=== PATIENT | female | born 1980 | race Caucasian/White ===

== ENCOUNTER 2018-02-03 23:03 | Emergency (ER) | payer MEDICAID, OTHER ==
[~2018-02-03] VITALS: Ht 172.7 cm; Wt 104.3 kg
[~2018-02-03 23:03] MED LIST: FLUT9.9S NS; GUAI120L35 PO
[2018-02-03 23:05] VITALS: BP 127/68
--- NOTE | 2018-02-03 23:09 | ED.ADGEN ---
Past History Past Medical History: No Pertinent History, Other Past Surgical History: Cholecystectomy, Hysterectomy Alcohol Use: None Drug Use: None Adult General Chief Complaint Chief Complaint ".. My stomach hurts...I ve been vomiting like.. when I have ileus... I ve had a lot of abd. surgery's.. and by pass for wt. loss..." HPI HPI Patient is a 37 year old female who presents with nausea and vomiting. Did eat dinner tonight. No one else got sick eating same food. .. Pt. has generalized abd. pain. No hx. of ill contacts or travel. No hx of immunosuppression. Pt. vomiting so hard she notice specks of bright red blood. Review of Systems Review of Systems Constitutional: Denies fever or chills [] Eyes: Denies change in visual acuity, redness, or eye pain [] HENT: Denies nasal congestion or sore throat [] Respiratory: Denies cough or shortness of breath [] Cardiovascular: No additional information not addressed in HPI [] GI: Complaints of generalize abdominal pain, nausea, vomiting,. Denies bloody stools or diarrhea [] : Denies dysuria or hematuria [] Musculoskeletal: Denies back pain or joint pain [] Integument: Denies rash or skin lesions [] Neurologic: Denies headache, focal weakness or sensory changes [] Endocrine: Denies polyuria or polydipsia [] All other systems were reviewed and found to be within normal limits, except as documented in this note. Family History Family History Non-contributory Current Medications Current Medications Current Medications Medications (Trade) Dose Ordered Sig/Jose Start Time Stop Time Status Last Admin Dose Admin Famotidine (Pepcid Vial) 20 mg 1X ONCE 02/03/18 23:30 02/03/18 23:31 DC 02/03/18 23:30 20 MG Info (Do NOT chart on this entry -- for MONITORING) 1 each PRN DAILY PRN 02/04/18 01:15 02/04/18 04:37 DC Iohexol (Omnipaque 240 Mg/ml) 50 ml 1X ONCE 02/04/18 01:15 02/04/18 01:16 DC 02/04/18 02:24 50 ML Iohexol (Omnipaque 300 Mg/ml) 75 ml 1X ONCE 02/04/18 01:15 02/04/18 01:16 DC 02/04/18 02:23 75 ML Lactated Ringer's 1,000 ml @ 1,000 mls/hr Q1H 02/03/18 23:30 02/04/18 00:29 DC 02/03/18 23:30 1,000 MLS/HR Ondansetron HCl (Zofran Odt) 4 mg STK-MED ONCE 02/03/18 23:15 02/03/18 23:16 DC Ondansetron HCl (Zofran) 8 mg 1X ONCE 02/03/18 23:30 02/03/18 23:31 DC 02/03/18 23:30 8 MG Trimethoprim/ Sulfamethoxazole (Bactrim Ds) 1 tab 1X ONCE 02/04/18 03:30 02/04/18 04:35 DC 02/04/18 04:06 1 TAB See Nursing for home meds. Allergies Allergies Allergies Coded Allergies Type Severity Reaction Last Updated Verified Penicillins Allergy Intermediate Rash 09/28/16 Yes Physical Exam Physical Exam Constitutional: moderately acute distress, non-toxic appearance. [] HENT: Normocephalic, atraumatic, bilateral external ears normal, oropharynx moist, no oral exudates, nose normal. [] Eyes: PERRLA, EOMI, conjunctiva normal, no discharge. [] Neck: Normal range of motion, no tenderness, supple, no stridor. [] Cardiovascular: Tachycardia Heart rate regular rhythm, no murmur [] Lungs & Thorax: Bilateral breath sounds equal at apex on auscultation [] Abdomen: Bowel sounds decreases, soft, generalized tenderness, no masses, no pulsatile masses. [] Multiple surgery scars. Skin: Warm, dry, no erythema, no rash. [] Back: No tenderness, no CVA tenderness. [] Extremities: No tenderness, no cyanosis, no clubbing, ROM intact, ankle edema. [ ] Neurologic: Alert and oriented X 3, normal motor function, normal sensory function, no focal deficits noted. [] Psychologic: Affect anxious, judgement normal, mood normal. [] Current Patient Data Lab Results Laboratory Tests Test 02/03/18 23:50 02/03/18 23:59 White Blood Count 10.5 x10^3/uL (4.0-11.0) Red Blood Count 4.41 x10^6/uL (3.50-5.40) Hemoglobin 12.9 g/dL (12.0-15.5) Hematocrit 38.2 % (36.0-47.0) Mean Corpuscular Volume 87 fL (79-100) Mean Corpuscular Hemoglobin 29 pg (25-35) Mean Corpuscular Hemoglobin Concent 34 g/dL (31-37) Red Cell Distribution Width 13.5 % (11.5-14.5) Platelet Count 353 x10^3/uL (140-400) Neutrophils (%) (Auto) 68 % (31-73) Lymphocytes (%) (Auto) 23 % (24-48) L Monocytes (%) (Auto) 6 % (0-9) Eosinophils (%) (Auto) 3 % (0-3) Basophils (%) (Auto) 0 % (0-3) Neutrophils # (Auto) 7.1 x10^3uL (1.8-7.7) Lymphocytes # (Auto) 2.4 x10^3/uL (1.0-4.8) Monocytes # (Auto) 0.7 x10^3/uL (0.0-1.1) Eosinophils # (Auto) 0.3 x10^3/uL (0.0-0.7) Basophils # (Auto) 0.0 x10^3/uL (0.0-0.2) Prothrombin Time 11.4 SEC (9.4-11.4) Prothrombin Time INR 1.1 (0.9-1.1) PTT 26 SEC (23-33) Sodium Level 142 mmol/L (136-145) Potassium Level 3.8 mmol/L (3.5-5.1) Chloride Level 105 mmol/L (98-107) Carbon Dioxide Level 27 mmol/L (21-32) Anion Gap 10 (6-14) Blood Urea Nitrogen 14 mg/dL (7-20) Creatinine 0.9 mg/dL (0.6-1.0) Estimated GFR (Cockcroft-Gault) 70.8 Glucose Level 110 mg/dL (70-99) H Calcium Level 9.2 mg/dL (8.5-10.1) Total Bilirubin 0.4 mg/dL (0.2-1.0) Direct Bilirubin 0.1 mg/dL (0.0-0.2) Aspartate Amino Transferase (AST) 18 U/L (15-37) Alanine Aminotransferase (ALT) 26 U/L (14-59) Alkaline Phosphatase 87 U/L (46-116) Total Protein 7.7 g/dL (6.4-8.2) Albumin 3.9 g/dL (3.4-5.0) Amylase Level 55 U/L (25-115) Lipase 165 U/L (73-393) Urine Collection Type Unknown Urine Color Straw Urine Clarity Hazy Urine pH 7.0 Urine Specific [place] 1.015 Urine Protein Neg (NEG-TRACE) Urine Glucose (UA) Neg mg/dL (NEG) Urine Ketones (Stick) Neg mg/dL (NEG) Urine Blood Trace (NEG) Urine Nitrite Pos (NEG) Urine Bilirubin Neg (NEG) Urine Urobilinogen Dipstick 0.2 mg/dL (0.2 mg/dL) Urine Leukocyte Esterase Small (NEG) Urine RBC 1-2 /HPF (0-2) Urine WBC 11-20 /HPF (0-4) Urine Squamous Epithelial Cells Few /LPF Urine Transitional Epithelial Cells Few /LPF Urine Renal Epithelial Cells Few /LPF Urine Bacteria Many /HPF (0-FEW) Urine Opiates Screen Neg (NEG) Urine Methadone Screen Neg (NEG) Urine Barbiturates Neg (NEG) Urine Phencyclidine Screen Neg (NEG) Urine Amphetamine/Methamphetamine Neg (NEG) Urine Benzodiazepines Screen Neg (NEG) Urine Cocaine Screen Neg (NEG) Urine Cannabinoids Screen Neg (NEG) Urine Ethyl Alcohol Neg (NEG) EKG EKG [] Radiology/Procedures Radiology/Procedures My interpretation of abd. film shows no free air under diaphragm. Old surgery clips. Findings of bariatric surgery. Non-specific bowel gas pattern. CT of abd. shows no obvious surgical pathology. Prior surgery. No obvious hydronephrosis. Course & Med Decision Making Course & Med Decision Making Pertinent Labs and Imaging studies reviewed. (See chart for details) Clear fluid diet x 48 hrs. No solids or milk products. Zofran for nausea and vomiting up 4 x day. Bactrim DS twice a day. Vitamin C drinks. Follow up cultures and labs with primary. Return if any concerns. [] Final Impression Final Impression 1. Abdomen pain[] 2. Nausea and vomiting 3. UTI Problems: Dragon Disclaimer Dragon Disclaimer This electronic medical record was generated, in whole or in part, using a voice recognition dictation system. JIHAN GABRIEL MD Feb 03, 2018 23:09
[2018-02-03] MEDS ORDERED: ONDANSETRON ODT 4 MG TAB.RAPDIS ONE (23:15)
[2018-02-03] MEDS ORDERED: ONDANSETRON PF 4 MG/2 ML VIAL. IV ONE (23:30)
[2018-02-03] MEDS ORDERED: IV RINGERS SOLUTION,LACTATED 1,000 ML IV SCH (23:30)
[2018-02-03] MEDS ORDERED: FAMOTIDINE 20 MG/2 ML VIAL IVP ONE (23:30)
[2018-02-04 00:05] LABS: BASO % 0 % (0-3); EOS # 0.3 x10^3/uL (0.0-0.7); EOS % 3 % (0-3); HEMATOCRIT 38.2 % (36.0-47.0); HEMOGLOBIN 12.9 g/dL (12.0-15.5); LYMPH # 2.4 x10^3/uL (1.0-4.8); LYMPH % 23 % (24-48); MEAN CORPUSCULAR HEMOGLOBIN 29 pg (25-35); MEAN CORPUSCULAR HGB CONC 34 g/dL (31-37); MEAN CORPUSCULAR VOLUME 87 fL (79-100); MONO # 0.7 x10^3/uL (0.0-1.1); MONO % 6 % (0-9); NEUT # 7.1 x10^3uL (1.8-7.7); NEUT % 68 % (31-73); PLATELET COUNT 353 x10^3/uL (140-400); RED BLOOD COUNT 4.41 x10^6/uL (3.50-5.40); RED CELL DISTRIBUTION WIDTH 13.5 % (11.5-14.5); WHITE BLOOD COUNT 10.5 x10^3/uL (4.0-11.0)
[2018-02-04 00:45] LABS: ALBUMIN 3.9 g/dL (3.4-5.0); CALCIUM 9.2 mg/dL (8.5-10.1); CREATININE 0.9 mg/dL (0.6-1.0); DIRECT BILIRUBIN 0.1 mg/dL (0.0-0.2); GFR 70.8; POTASSIUM 3.8 mmol/L (3.5-5.1); TOTAL BILIRUBIN 0.4 mg/dL (0.2-1.0); TOTAL PROTEIN 7.7 g/dL (6.4-8.2)
[2018-02-04] MEDS ORDERED: IOHEXOL 240 MG/ML 50ML VIAL. PO ONE (01:15)
[2018-02-04] MEDS ORDERED: IOHEXOL 300 MG/ML 75 ML VIAL. IV ONE (01:15)
[2018-02-04] MEDS ORDERED: CONTRAST GIVEN MC PRN (01:15)
[2018-02-04 01:40] LABS: BACTERIA,URINE MANY /HPF (0-FEW); BILIRUBIN,URINE NEG (NEG); CLARITY,URINE HAZY; COLOR,URINE STRAW; GLUCOSE,URINE NEG (NEG); NITRITE,URINE POS (NEG); SQUAMOUS EPITHELIAL CELL,UR FEW /LPF; UROBILINOGEN,URINE 0.2 mg/dL (0.2 mg/dL)
[2018-02-04 01:43] LABS: BARBITURATES NEG (NEG); BENZODIAZEPINES NEG (NEG); CANNABINOIDS NEG (NEG); COCAINE NEG (NEG); METHADONE NEG (NEG); OPIATES NEG (NEG); PHENCYCLIDINE NEG (NEG)
[2018-02-04 01:47] LABS: AMPHETAMINE/METHAMPHETAMINE NEG (NEG)
--- NOTE | 2018-02-04 03:17 | RAD ---
INDICATION: Omni 300, 75ml per IV. Omni 240, 30ml PO. Abdominal pain, nausea, vomiting, HX past ileus. Hx hysterectomy, gastric bypass, cholecystectomy COMPARISON: None. TECHNIQUE: Axial CT images obtained through the abdomen and pelvis with contrast. One or more of the following individualized dose reduction techniques were utilized for this examination: 1. Automated exposure control; 2. Adjustment of the mA and/or kV according to patient size; 3. Use of iterative reconstruction technique. FINDINGS: Abdominal aorta does not appear aneurysmal. Postcholecystectomy changes. Mild prominence of ducts but this is commonly seen postoperatively. No definite peripancreatic fluid collection. Spleen unremarkable. No left-sided hydronephrosis. Urinary bladder is not significantly dilated. Mild prominence of wall. Nonobstructive right renal stone, 8mm. No right-sided hydronephrosis. There is some mild prominence of the right ureter with mild distention. Difficult to follow the ureter within the pelvis secondary to bowel within the area but there is a 1 mm calcification in the right hemipelvis. Colonic diverticulosis. Small fat-containing umbilical hernia. The suspected appendix does not appear grossly dilated. No dilated loops of bowel to suggest obstruction. Degenerative changes spine. Grade 1 anterolisthesis of L5 on S1. Pars defects L5. IMPRESSION: Mild distention of the right ureter with a 1 mm calcification seen within the right hemipelvis. It is difficult to follow the ureter through this location but given the mild prominence of the right ureter a tiny distal ureter stone is not excluded. Urinary bladder is minimally distended with mild prominence of the wall. Could be from lack of distention but if there is symptoms within the region causes such as mild cystitis not excluded. Electronically signed by: Santiago Jacques MD (02/04/2018 3:13 AM) [id number]
[2018-02-04] MEDS ORDERED: SMZ/TMP 800/160MG TABLET. PO ONE (03:30)
[2018-02-04] MEDS ORDERED: SULF1TAB24 PO (04:06)
[2018-02-04] MEDS ORDERED: ONDA8TAB12 PO (04:06)
--- NOTE | 2018-02-04 08:07 | RAD ---
PA chest AP upright and supine abdomen x-rays History: Abdominal pain, nausea and vomiting. Findings: Heart and mediastinum are unremarkable. No pulmonary opacities or pleural effusions. No pneumoperitoneum. Cholecystectomy clips. Surgical changes GI tract left upper quadrant. Degenerative changes lower lumbar spine. Pelvis not within the field of view. No dilated bowel loops or abnormal air-fluid levels evident. Impression: No acute processes.
== END 2018-02-04 04:30 | disposition home or self-care (01) ==
LOC: ER 23:03
DX: N39.0 Urinary tract infection, site not specified (principal); Z90.710 Acquired absence of both cervix and uterus; Z90.49 Acquired absence of other specified parts of digestive tract; Z98.84 Bariatric surgery status; Z88.0 Allergy status to penicillin
CPT/HCPCS: 36415; 74022; 74177; 80048; 80076; 80307; 81001; 82150; 83690; 85025; 85610; 85730; 87086; 96361; 96374; 96375; 99285; J2405; J7120; Q9966; Q9967; S0028; G0479

== ENCOUNTER 2018-07-12 18:03 | Emergency (ER) | payer OTHER ==
[~2018-07-12] VITALS: Ht 172.7 cm; Wt 104.3 kg
[~2018-07-12 18:03] MED LIST changes: +ONDA8TAB12 PO; +SULF1TAB24 PO
[2018-07-12] MEDS ORDERED: IOHEXOL 240 MG/ML 50ML VIAL. ONE (18:26)
--- NOTE | 2018-07-12 18:29 | PHYS DOC ---
Past History Past Medical History: Anxiety, Other Past Surgical History: Cholecystectomy, Hysterectomy, Other Additional Past Surgical Histo: Gen-en-Y gastric bypass Alcohol Use: None Drug Use: None Adult General HPI HPI Patient is a 38-year-old female who presents to the emergency department for evaluation. She states that for the past 24 hours, she has been having intermittent crampy epigastric/subxiphoid pain, which feels like a strong cramp , and will wax and wane, and radiate towards the back. The pain is described as a crampy pressure. Laying flat seems to worsen the symptoms, and the patient states that occasional she is able to belch which will provide some relief to her symptoms. She has not noticed any definite exertional exacerbation of her chest pain, she has had some nausea and decreased appetite secondary to the pain, but is eating seems to worsen the pain, that she has not been eating some much. She has not had any fevers or chills, diarrhea, and not had any vomiting. She has not had any urinary symptoms. She does have a past history of a Gen-en- Y gastric bypass about 3 years ago. Review of Systems Review of Systems Constitutional: Denies fever or chills [] Eyes: Denies change in visual acuity, redness, or eye pain [] HENT: Denies nasal congestion or sore throat [] Respiratory: Denies cough. Does report some generalized shortness of breath, which she states is most prominent when she is having the epigastric abdominal discomfort. [] Cardiovascular: No additional information not addressed in HPI [] GI: No additional information not addressed in HPI [] : Denies dysuria or hematuria [] Musculoskeletal: Denies back pain or joint pain . Does report having some intermittent leg cramps at times.[] Integument: Denies rash or skin lesions [] Neurologic: Denies headache, focal weakness or sensory changes [] Endocrine: Denies polyuria or polydipsia [] All other systems were reviewed and found to be within normal limits, except as documented in this note. Allergies Allergies Allergies Coded Allergies Type Severity Reaction Last Updated Verified Penicillins Allergy Intermediate Rash 09/28/16 Yes Physical Exam Physical Exam PHYSICAL EXAM: CONSTITUTIONAL: Well developed, well nourished HEAD: normocephalic, atraumatic EENT: PERRL, EOMI. Conjunctivae normal color, sclerae non-icteric; moist mucous membranes. NECK: Supple, non-tender; no meningismus. LUNGS: Lungs CTA, breathing even and unlabored. Normal air movement. HEART: Regular rate and rhythm, no murmur CHEST: No deformity; non-tender ABDOMEN: The abdomen is soft, normal bowel sounds are present, there is epigastric tenderness to palpation, which reproduces the patient's pain. The remainder the abdomen is soft and non-tender, no masses or bruits. EXTREM: Normal ROM; no deformity, no calf tenderness. Normal pulses palpable in all extremities. There is no pedal edema. SKIN: No rash; no diaphoresis NEURO: Alert; normal speech and cognition; CN's grossly intact; strength grossly intact without focal deficit. BACK: No CVA TTP. Current Patient Data Lab Results Laboratory Tests Test 07/12/18 18:20 White Blood Count 10.9 x10^3/uL Red Blood Count 4.80 x10^6/uL Hemoglobin 13.6 g/dL Hematocrit 40.6 % Mean Corpuscular Volume 85 fL Mean Corpuscular Hemoglobin 28 pg Mean Corpuscular Hemoglobin Concent 34 g/dL Red Cell Distribution Width 13.9 % Platelet Count 420 x10^3/uL Neutrophils (%) (Auto) 73 % Lymphocytes (%) (Auto) 20 % Monocytes (%) (Auto) 5 % Eosinophils (%) (Auto) 2 % Basophils (%) (Auto) 0 % Neutrophils # (Auto) 8.0 x10^3uL Lymphocytes # (Auto) 2.2 x10^3/uL Monocytes # (Auto) 0.5 x10^3/uL Eosinophils # (Auto) 0.2 x10^3/uL Basophils # (Auto) 0.0 x10^3/uL Urine Collection Type Unknown Urine Color Yellow Urine Clarity Hazy Urine pH 6.0 Urine Specific [place] 1.015 Urine Protein Neg Urine Glucose (UA) Neg mg/dL Urine Ketones (Stick) 15 mg/dL Urine Blood Neg Urine Nitrite Neg Urine Bilirubin Neg Urine Urobilinogen Dipstick 0.2 mg/dL Urine Leukocyte Esterase Small Urine RBC 0 /HPF Urine WBC 11-20 /HPF Urine Squamous Epithelial Cells Few /LPF Urine Bacteria Few /HPF Urine Mucus Mod /LPF Sodium Level 142 mmol/L Potassium Level 3.8 mmol/L Chloride Level 102 mmol/L Carbon Dioxide Level 30 mmol/L Anion Gap 10 Blood Urea Nitrogen 9 mg/dL Creatinine 0.6 mg/dL Estimated GFR (Cockcroft-Gault) 112.5 BUN/Creatinine Ratio 15 Glucose Level 97 mg/dL Calcium Level 10.0 mg/dL Magnesium Level 2.2 mg/dL Total Bilirubin 0.5 mg/dL Aspartate Amino Transf (AST/SGOT) 15 U/L Alanine Aminotransferase (ALT/SGPT) 25 U/L Alkaline Phosphatase 84 U/L Troponin I Quantitative < 0.017 ng/mL Total Protein 7.4 g/dL Albumin 4.3 g/dL Albumin/Globulin Ratio 1.4 Lipase 126 U/L Current Medications Medications (Trade) Dose Ordered Sig/Jose Route PRN Reason Start Time Stop Time Status Last Admin Dose Admin Morphine Sulfate (Morphine 4mg Syringe) 4 mg PRN Q15MIN PRN IV/SQ PAIN GREATER THAN 3/10 07/12/18 18:30 07/13/18 18:29 07/12/18 19:04 Sodium Chloride 1,000 ml @ 100 mls/hr Q10H IV 07/12/18 18:30 07/13/18 04:29 07/12/18 19:03 Ondansetron HCl (Zofran) 4 mg 1X ONCE IV 07/12/18 18:30 07/12/18 18:31 DC 07/12/18 19:03 Iohexol (Omnipaque 300 Mg/ml) 75 ml 1X ONCE IV 07/12/18 18:30 07/12/18 18:31 DC 07/12/18 19:18 Iohexol (Omnipaque 240 Mg/ml) 50 ml STK-MED ONCE .ROUTE 07/12/18 18:26 07/12/18 18:28 DC Iohexol (Omnipaque 240 Mg/ml) 50 ml 1X ONCE PO 07/12/18 18:45 07/12/18 18:46 DC 07/12/18 19:18 Multi-Ingredient Mouthwash/Gargle (Gi Cocktail) 20 ml 1X ONCE PO 07/12/18 20:00 07/12/18 20:01 DC 07/12/18 20:00 Famotidine (Pepcid Vial) 20 mg 1X ONCE IVP 07/12/18 20:15 07/12/18 20:24 DC 07/12/18 20:21 Morphine Sulfate (Morphine 4mg Syringe) 4 mg 1X ONCE IV 07/12/18 20:15 07/12/18 20:24 DC 07/12/18 20:22 EKG EKG [Normal sinus rhythm at a rate of 79 bpm, normal axis, normal intervals. There are no acute ischemic ST/T changes.] Repeat EKG, done at 8:42 PM shows no acute changes from prior, normal sinus rhythm a rate of 70 beats for minute, normal axis, normal intervals. There are no acute ischemic ST/T changes. Radiology/Procedures Radiology/Procedures [PROCEDURE: CT ABD PELV W/ORAL&IV CONTRAST Exam performed: CT scan of the abdomen and pelvis with contrast Indication: Epigastric pain upper abdominal pain, patient feels bloated all the time Date of Service: 07/12/2018. Comparison: None available Technique: Contiguous helical acquisitions are obtained through the abdomen and pelvis during intravenous administration of 75 cc of Omnipaque 300. In addition sagittal and coronal reformatted images are obtained and reviewed. CT scan abdomen and pelvis findings: The lung bases are clear. Visualized heart is normal. The liver, spleen and pancreas appear normal. Cholecystectomy. Mild prominence of the biliary channels is probably related to reservoir effect from previous cholecystectomy. There are postoperative changes about the stomach. Both adrenal glands and bilateral kidneys appear normal with symmetric excretion of contrast via both kidneys. Nonobstructing right inferior renal pole calculus is noted. The aorta is normal in caliber without aneurysm. No retroperitoneal lymphadenopathy is identified. The small bowel loops are nondilated and unremarkable . There are mildly prominent mesenteric lymph nodes in the right lower quadrant. No bowel related stranding seen. The pelvic small bowel loops are nondilated and unremarkable .Sigmoid diverticulosis without acute diverticulitis. The urinary bladder is well distended and unremarkable. No pelvic side wall lymphadenopathy or free fluid seen. Bones unremarkable. Impression CT Abdomen and pelvis: 1. No acute findings seen in the abdomen and pelvis. 2. Nonobstructing right inferior renal pole calculus. ] ER physician preliminary chest XR interpretation: No acute disease. Course & Med Decision Making Course & Med Decision Making Pertinent Labs and Imaging studies reviewed. (See chart for details) [8:45 PM: The patient's condition remains stable. I discussed test results with the patient, the uncertain etiology of her symptoms, the need for close follow- up. Differential diagnosis includes gastritis or peptic ulcer disease, or GERD, as well as others. Other etiologies, such as an internal hernia, are considered less likely at this point is certainly within the differential. The patient still does follow up with her bariatric surgeon and I encouraged her to follow up closely. I also think the patient would benefit from a GI evaluation and she' ll be given information for follow-up. Return precautions were discussed in detail. Dragon Disclaimer Dragon Disclaimer This electronic medical record was generated, in whole or in part, using a voice recognition dictation system. Departure Departure: Impression: Primary Impression: Epigastric abdominal pain Disposition: HOME, SELF-CARE Condition: STABLE Referrals: [facility] (PCP) Patient Instructions: Abdominal Pain, Gastrin Additional Instructions: Follow-up with your bariatric surgeon for further evaluation within the next 3- 4 days. Please call to schedule appointment. Additionally, follow up with gastroenterology, Dr. Bell, as further evaluation with upper endoscopy might be needed. Please call [phone] to schedule an appointment. The prescribed medications may cause drowsiness-use caution while taking. Scripts Hydrocodone Bit/Acetaminophen (NORCO 5-325 TABLET) 1 Each Tablet 1-2 TAB PO Q4-6HRS, #15 TAB Prov: CLIFFORD LIM MD 07/12/18 Sulfamethoxazole/Trimethoprim (BACTRIM 400-80 MG TABLET) 1 Each Tablet 1 TAB PO BID, #14 TAB Prov: CLIFFORD LIM MD 07/12/18 Pantoprazole Sodium (PROTONIX) 40 Mg Tablet. 1 TAB PO DAILY, #30 TAB 1 Refill Prov: CLIFFORD LIM MD 07/12/18 CLIFFORD LIM MD Jul 12, 2018 18:29
[2018-07-12] MEDS ORDERED: IV NORMAL SALINE 1,000ML 1,000 ML IV SCH (18:30)
[2018-07-12] MEDS ORDERED: ONDANSETRON PF 4 MG/2 ML VIAL. IV ONE (18:30)
[2018-07-12] MEDS ORDERED: IOHEXOL 300 MG/ML 75 ML VIAL. IV ONE (18:30)
[2018-07-12] MEDS ORDERED: MORPHINE SULFATE 4 MG/ML DISP.SYRIN. IV/SQ PRN (18:30)
--- NOTE | 2018-07-12 18:30 | EKG ---
[address] [address] Test Date: 2018-07-12 Test Time: 18:26:11 Pat Name: CHEO ORTIZ Department: Room: Gender: F Pt Escort: : 1980 Requested By: CLIFFORD LIM Order Number: [id number] Reading MD: Measurements Intervals [place] Rate: 79 P: 45 ID: [id number] QRS: 31 QRSD: 80 T: 20 QT: 370 QTc: 425 Interpretive Statements SINUS RHYTHM NO SPECIFIC ECG ABNORMALITIES RI6.01 Unconfirmed report No previous ECG available for comparison
[2018-07-12 18:45] LABS: BASO % 0 % (0-3); EOS # 0.2 x10^3/uL (0.0-0.7); EOS % 2 % (0-3); HEMATOCRIT 40.6 % (36.0-47.0); HEMOGLOBIN 13.6 g/dL (12.0-15.5); LYMPH # 2.2 x10^3/uL (1.0-4.8); LYMPH % 20 % (24-48); MEAN CORPUSCULAR HEMOGLOBIN 28 pg (25-35); MEAN CORPUSCULAR HGB CONC 34 g/dL (31-37); MEAN CORPUSCULAR VOLUME 85 fL (79-100); MONO # 0.5 x10^3/uL (0.0-1.1); MONO % 5 % (0-9); NEUT % 73 % (31-73); PLATELET COUNT 420 x10^3/uL (140-400); RED CELL DISTRIBUTION WIDTH 13.9 % (11.5-14.5); WHITE BLOOD COUNT 10.9 x10^3/uL (4.0-11.0)
[2018-07-12] MEDS ORDERED: IOHEXOL 240 MG/ML 50ML VIAL. PO ONE (18:45)
[2018-07-12 18:50] LABS: BACTERIA,URINE FEW /HPF (0-FEW); BILIRUBIN,URINE NEG (NEG); CLARITY,URINE HAZY; COLOR,URINE YELLOW; GLUCOSE,URINE NEG (NEG); NITRITE,URINE NEG (NEG); RBC,URINE 0 /HPF (0-2); SQUAMOUS EPITHELIAL CELL,UR FEW /LPF; UROBILINOGEN,URINE 0.2 mg/dL (0.2 mg/dL)
[2018-07-12 18:58] LABS: ALBUMIN 4.3 g/dL (3.4-5.0); ALBUMIN/GLOBULIN RATIO 1.4 (1.0-1.7); CREATININE 0.6 mg/dL (0.6-1.0); GFR 112.5; MAGNESIUM 2.2 mg/dL (1.8-2.4); POTASSIUM 3.8 mmol/L (3.5-5.1); TOTAL BILIRUBIN 0.5 mg/dL (0.2-1.0); TOTAL PROTEIN 7.4 g/dL (6.4-8.2)
--- NOTE | 2018-07-12 19:44 | RAD ---
Exam performed: CT scan of the abdomen and pelvis with contrast Indication: Epigastric pain upper abdominal pain, patient feels bloated all the time Date of Service: 07/12/2018. Comparison: None available Technique: Contiguous helical acquisitions are obtained through the abdomen and pelvis during intravenous administration of 75 cc of Omnipaque 300. In addition sagittal and coronal reformatted images are obtained and reviewed. CT scan abdomen and pelvis findings: The lung bases are clear. Visualized heart is normal. The liver, spleen and pancreas appear normal. Cholecystectomy. Mild prominence of the biliary channels is probably related to reservoir effect from previous cholecystectomy. There are postoperative changes about the stomach. Both adrenal glands and bilateral kidneys appear normal with symmetric excretion of contrast via both kidneys. Nonobstructing right inferior renal pole calculus is noted. The aorta is normal in caliber without aneurysm. No retroperitoneal lymphadenopathy is identified. The small bowel loops are nondilated and unremarkable . There are mildly prominent mesenteric lymph nodes in the right lower quadrant. No bowel related stranding seen. The pelvic small bowel loops are nondilated and unremarkable .Sigmoid diverticulosis without acute diverticulitis. The urinary bladder is well distended and unremarkable. No pelvic side wall lymphadenopathy or free fluid seen. Bones unremarkable. Impression CT Abdomen and pelvis: 1. No acute findings seen in the abdomen and pelvis. 2. Nonobstructing right inferior renal pole calculus. PQRS Compliance Statement: One or more of the following individualized dose reduction techniques were utilized for this examination: 1. Automated exposure control 2. Adjustment of the mA and/or kV according to patient size 3. Use of iterative reconstruction technique Electronically signed by: Louise Redding MD (07/12/2018 7:41 PM) [facility]
[2018-07-12] MEDS ORDERED: LIDO:MAALOX 1:1 20 ML SINGLE DOSE. PO ONE (20:00)
[2018-07-12] MEDS ORDERED: FAMOTIDINE 20 MG/2 ML VIAL IVP ONE (20:15)
[2018-07-12] MEDS ORDERED: MORPHINE SULFATE 4 MG/ML DISP.SYRIN. IV ONE (20:15)
[2018-07-12] MEDS ORDERED: SULF1TAB23 PO (20:52)
[2018-07-12] MEDS ORDERED: PANT40TA3 PO (20:52)
[2018-07-12] MEDS ORDERED: HYDR-971 PO (20:52)
[2018-07-12 21:00] VITALS: BP 130/80
--- NOTE | 2018-07-13 11:22 | EKG ---
[address] [address] Test Date: 2018-07-12 Test Time: 20:42:33 Pat Name: CHEO ORTIZ Department: Room: Gender: F [employer]se Master Mechanic: : 1980 Requested By: CLIFFORD LIM Order Number: [id number] Reading MD: Measurements Intervals [place] Rate: 70 P: 41 GA: 146 QRS: 10 QRSD: 86 T: 8 QT: 398 QTc: 433 Interpretive Statements SINUS RHYTHM NO SPECIFIC ECG ABNORMALITIES RI6.01 Unconfirmed report No previous ECG available for comparison
== END 2018-07-12 21:07 | disposition home or self-care (01) ==
LOC: ER 18:03
DX: R10.13 Epigastric pain (principal); R06.02 Shortness of breath; F41.9 Anxiety disorder, unspecified; Z90.49 Acquired absence of other specified parts of digestive tract; Z90.710 Acquired absence of both cervix and uterus; Z88.0 Allergy status to penicillin
CPT/HCPCS: 36415; 71045; 74177; 80053; 81001; 83690; 83735; 84484; 85025; 93005; 96374; 96375; 96376; 99285; J2270; J2405; Q9966; Q9967; S0028; J7030

== ENCOUNTER 2021-10-05 18:21 | Emergency (ER) | payer OTHER ==
[~2021-10-05] VITALS: Ht 172.7 cm; Wt 137.8 kg
[~2021-10-05 18:21] MED LIST changes: +HYDR-3165 PO; +PANT40TA3 PO; +SULF1TAB23 PO
--- NOTE | 2021-10-05 19:20 | PHYS DOC ---
Past History Past Medical History: Anxiety, Depression (DALE VELEZ APRN) Past Surgical History: Cholecystectomy, Gastric Bypass, Hysterectomy Additional Past Surgical Histo: Gen-en-Y gastric bypass (DALE VELEZ APRN) Alcohol Use: None Drug Use: None (DALE VELEZ APRN) General Adult EDM: Chief Complaint: MULTIPLE COMPLAINTS HPI: HPI: Patient is a 41-year-old female that presents today with body aches, fever, cough, and the loss of taste. Patient states her symptoms started last and she is progressively gotten worse over the last couple of days today she does not have a fever but she says her sense of taste is lost and she is concerned that she may have Covid. 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 Patient has not had any vaccines. (DALE VELEZ APRN) Review of Systems: Review of Systems: Constitutional: fever or chills Eyes: Denies change in visual acuity HENT: Denies nasal congestion or sore throat Respiratory: cough or shortness of breath with exertion Cardiovascular: Denies chest pain or edema GI: Denies abdominal pain, nausea, vomiting, bloody stools or diarrhea : Denies dysuria Musculoskeletal: Body aches Integument: Denies rash Neurologic: Denies headache, focal weakness or sensory changes Endocrine: Denies polyuria or polydipsia Lymphatic: Denies swollen glands Psychiatric: Denies depression or anxiety (DALE VELEZ APRN) Allergies: Allergies: Allergies Coded Allergies Type Severity Reaction Last Updated Verified Penicillins Allergy Intermediate Rash 07/12/18 Yes (DALE VELEZ APRN) Physical Exam: PE: Constitutional: Well developed, well nourished, no acute distress, non-toxic appearance. [] HENT: Normocephalic, atraumatic, bilateral external ears normal, oropharynx moist, no oral exudates, nose normal. [] Eyes: PERRLA, EOMI, conjunctiva normal, no discharge. [] Neck: Normal range of motion, no tenderness, supple, no stridor. [] Cardiovascular:Heart rate regular rhythm, no murmur [] Lungs & Thorax: Bilateral breath sounds clear to auscultation [] Abdomen: Bowel sounds normal, soft, no tenderness, no masses, no pulsatile masses. [] Skin: Warm, dry, no erythema, no rash. [] Back: No tenderness, no CVA tenderness. [] Extremities: No tenderness, no cyanosis, no clubbing, ROM intact, no edema. [] Neurologic: Alert and oriented X 3, normal motor function, normal sensory function, no focal deficits noted. [] Psychologic: Affect normal, judgement normal, mood normal. [] (DALE VELEZ APRN) Current Patient Data: Vital Signs: Vital Signs Date Time Temp Pulse Resp B/P (MAP) Pulse Ox O2 Delivery O2 Flow Rate FiO2 10/05/21 18:59 98.4 91 18 139/76 (97) 97 Room Air (DALE VELEZ APRN) EKG: EKG: [] (DALE VELEZ APRN) Radiology/Procedures: Radiology/Procedures: REASON: cough and SOA PROCEDURE: CHEST AP ONLY AP chest. HISTORY: Cough, short of breath AP view was taken of the chest. Patient's taken a poor inspiration. There are no acute infiltrates. There is no effusion. IMPRESSION: 1. No acute infiltrates. Electronically signed by: Hima David MD (10/05/2021 7:41 PM) [facility] [] (DALE VELEZ APRN) Heart Score: C/O Chest Pain: N/A Risk Factors: Risk Factors: DM, Current or recent (<one month) smoker, HTN, HLP, family history of CAD, obesity. Risk Scores: Score 0 - 3: 2.5% MACE over next 6 weeks - Discharge Home Score 4 - 6: 20.3% MACE over next 6 weeks - Admit for Clinical Observation Score 7 - 10: 72.7% MACE over next 6 weeks - Early Invasive Strategies (DALE VELEZ APRN) Course & Med Decision Making: Course & Med Decision Making Pertinent Labs and Imaging studies reviewed. (See chart for details) 2044 reviewed radiology results with patient, informed that there is no pneumonia on her chest x-ray, will await Covid results for diagnosis. Patient understands that she must quarantine until she gets the results and if the results are positive she must quarantine 14 days from the first day of her symptoms. Which was last . Patient also has a cellulitic rash on her abdomen that has been going on for several days she is concerned because the redness is gotten worse, patient will be given a prescription for cephalexin 500 mg and given a list of community resources for her to establish a primary care physician. Patient verbalizes understanding of the plan of care and agrees to it (DALE VELEZ APRN) Course & Med Decision Making I was the Attending physician on the above date of service of this patient. This patient was evaluated, examined, treated, and dispositioned from the emergency department by the mid-level practitioner. Although I was working at the time , no assistance was requested. Electronically signed, Carolina Olivier DO (CAROLINA OLIVIER DO) Ang Disclaimer: Ang Disclaimer: This electronic medical record was generated, in whole or in part, using a voice recognition dictation system. (DALE VELEZ APRN) Departure Departure: Impression: Primary Impression: Suspected 2019 novel coronavirus infection Additional Impression: Cellulitis Qualified Codes: L03.311 - Cellulitis of abdominal wall Disposition: HOME / SELF CARE / HOMELESS Condition: STABLE Referrals: PCP,NO (PCP) Additional Instructions: You have been tested for or diagnosed with COVID-19. It is an infection caused by a new type of coronavirus. COVID-19 will cause cold-like or mild flu symptoms in most. It can cause more severe symptoms like problems breathing in some. There is no treatment for COVID-19. The body will clear the infection over time. Self-care will help to ease discomfort. Steps to Take: Self-Care Rest as needed. Healthy habits may help you feel better. Steps include: Choose healthy foods including fruits and vegetables. Drink water throughout the day. Get plenty of sleep each night. If you smoke, try to quit. It may ease breathing. Avoid alcohol. Keep Others Healthy The virus can spread to others. Droplets are released every time you sneeze or cough. The droplets can get into the mouth, nose, or eyes of people near you and lead to infection. To lower the chances of spreading COVID-19 to others: Stay at home until your doctor has said it is safe to leave. If you tested positive this will mean staying isolated until both of the following are true: At least 14 days have passed since the start of illness. You are free of fever for at least 72 hours without the use of medicine. During this time: - Avoid public areas, events, or transportation. Do not return to work or school until your doctor has said it is safe to do so. - Call ahead if you need to go to a medical center. Let them know you may have COVID-19. It will help them guide you where to go. They may also ask you to wear a facemask when you come to the office. - If you call for emergency medical services, let them know you may have COVID- 19. While at home: - Try to avoid close contact with others. Stay about 6 feet away. - If possible, spend most of your time in a separate room from others. - Use a face mask if you will be in close contact with others such as sharing a room or vehicle. - Have someone wipe down common surfaces in the home. Use household materials scheduler every day on areas like doorknobs, counters, or sinks. - Cough or sneeze into a tissue. Throw the tissue away right after use. If a tissue is not available, cough or sneeze into your elbow. - Wash your hands often. Wash them after sneezing or coughing. Use soap and water and wash for at least 20 seconds. Alcohol based hand turkey cleaner can be used if soap and water is not available. - Do not prepare food for others. Avoid sharing personal items like forks, spoons, or toothbrushes. - Avoid close contact with pets while you are sick. There is no evidence of the virus passing to pets. This is a safety step until more is known about this virus. Isolation can be frustrating. Social interaction can help. Keep in touch with friends and family through phone and tech options. You can still interact with others in your home, just keep a safe distance of about 6 feet. Follow-up: Your doctors office will check in with you to see if there are any changes in your health. You may be asked to keep track of symptoms to share with them. They will also let you know when you are clear to be in public again. Problems to Look Out For: Contact your doctor if your recovery is not going as you expect. Get emergency care if you have problems such as: - Trouble breathing - Nonstop chest pain or pressure - Changes in awareness, confusion, or problems waking - Lips or face have bluish color - Worsening of symptoms If you think you have an emergency, call for emergency medical services right away. As taken from [facility] Cephalexin (KEFLEX) 500 Mg Capsule 1 CAP PO QID for cellulitis for 10 Days, #40 CAP Prov: DALE VELEZ APRN 10/05/21 DALE VELEZ APRN Oct 05, 2021 19:20 CAROLINA OLIVIER DO Oct 06, 2021 01:21
--- NOTE | 2021-10-05 19:44 | RAD ---
AP chest. HISTORY: Cough, short of breath AP view was taken of the chest. Patient's taken a poor inspiration. There are no acute infiltrates. T here is no effusion. IMPRESSION: 1. No acute infiltrates. Electronically signed by: Hima David MD (10/05/2021 7:41 PM) [facility]
[2021-10-05] MEDS ORDERED: CEPH500C PO (20:49)
[2021-10-05 20:57] VITALS: BP 159/87
== END 2021-10-05 21:02 | disposition home or self-care (01) ==
LOC: ER 18:21
DX: U07.1 COVID-19 (principal); L03.311 Cellulitis of abdominal wall; Z88.0 Allergy status to penicillin
CPT/HCPCS: 71045; 99284; C9803; U0003